=== PATIENT | female | born 1990 | race Caucasian/White ===

== ENCOUNTER 2016-08-10 11:18 | Emergency (ER) | payer MEDICAID ==
--- NOTE | 2016-08-10 11:52 | UCPHY ---
H & P Time Seen by Provider: 08/10/16 11:27 Patient Type: Established HPI/ROS: CHIEF COMPLAINT: Vaginal bleeding and cramping post plan B contraception HISTORY OF PRESENT ILLNESS: 26-year-old female in the urgent care complaining of vaginal bleeding and lower abdominal cramping since this morning. Today is Wednesday. On Wednesday morning she took Plan B emergency contraception after unprotected sexual intercourse Wednesday evening. This morning she started to experience abdominal cramping, nausea, no vomiting, no bowel movement abnormality. REVIEW OF SYSTEMS: A ten point review of systems was performed and is negative with the exception of the items mentioned in the HPI PAST MEDICAL & SURGICAL HISTORY: History of heavy menstrual period. Last normal menstrual period was 08/02/2016 SOCIAL HISTORY:nonsmoker PHYSICAL EXAM (Prior to examination, patient consented to physical exam, hands were washed and my usual and customary physical exam procedures followed) 1) GENERAL: Well-developed, well-nourished, alert and oriented. Appears to be in no acute distress. She is smiling, shakes my hand 2) HEAD: Normocephalic, atraumatic 3) HEENT: Pupils equal, round, reactive to light bilaterally. Sclera anicteric. 4) NECK: Full range of motion, no meningeal signs. 5) LUNGS: Clear auscultation bilaterally, no wheezes, no rhonchi, no retractions. 6) HEART: Regular rate and rhythm, no murmur, no heave, no gallop. 7) ABDOMEN: No guarding, no rebound, no focal tenderness, negative McBurney's, negative Sweeney's, negative Rovsing's, negative peritoneal sign, I am unable to elicit any abdominal pain on exam 8) MUSCULOSKELETAL: No peripheral edema or discoloration. 9) BACK: No CVA tenderness. 10) SKIN: No rash, no petechiae. DIFFERENTIAL DIAGNOSIS: [My differential diagnosis includes, but is not limited to, nausea vomiting abdominal pain secondary to emergency contraception , acute appendicitis, acute cholecystitis, bowel obstruction, acute pancreatitis , ovarian torsion, ectopic , gastritis and urinary tract infection. The patient understands that this diagnosis is provisional and can never be 100 % accurate. This is a partial list of diagnoses considered. These considerations are based on history, physical exam, past history and reassessment. Smoking Status: Never smoked Constitutional: Initial Vital Signs Temperature (C) 37.0 C 08/10/16 11:40 Heart Rate 77 08/10/16 11:40 Respiratory Rate 18 08/10/16 11:40 Blood Pressure 106/73 08/10/16 11:40 O2 Sat (%) 96 08/10/16 11:40 O2 Delivery Mode Room Air Allergies/Adverse Reactions: No Known Allergies Allergy (Verified 08/10/16 11:35) Home Medications: Medication Instructions Recorded LaMICtal 01/01/16 Topamax 01/01/16 MDM/Departure - [facility] ED Course/Re-evaluation: This patient has been re-evaluated with serial examinations. Her abdomen is soft, no guarding no rebound. Doubt acute surgical abdominal pathology, doubt acute appendicitis, doubt ectopic . Plan will be discharge. Offered analgesia and anti emetic which she declined. Patient feels comfortable being discharged. Usual and customary abdominal discharge precautions instructions provided. - Depart Disposition: Home, Routine, Self-Care Clinical Impression: Emergency contraception Condition: Good Instructions: Emergency Contraception (ED) Additional Instructions: Seek immediate medical attention if you develop new or worsening symptoms, if you develop fevers, chills, inability to tolerate oral intake or any other symptoms that concerns you. Referrals: [facility],. [Primary Care Provider] - 1 day without fail - PQRS PQRS Measurement: Not applicable
[2016-08-10 11:56] LABS: COLOR YELLOW; LEUKOCYTE ESTERASE,URINE NEGATIVE (NEGATIVE); NITRITE,URINE NEGATIVE (NEGATIVE); PH,URINE 8.5 (5.0-7.5)
[2016-08-10 11:57] VITALS: BP 106/73; PULSE 77; RESP 18; TEMP 98.6; O2SAT 96
[2016-08-10 12:06] LABS: AMORPHOUS 3+ /hpf (NONE-1+); MUCUS TRACE /lpf (NONE-1+); RBC,URINE 0-1 /hpf (0-3); WBC,URINE NONE SEEN /hpf (0-3)
== END 2016-08-10 12:21 | disposition home or self-care (01) ==
LOC: CED 11:18
DX: N93.9 Abnormal uterine and vaginal bleeding, unspecified (principal)
CPT/HCPCS: 81003-PO; 81015-PO; 81025-PO; 99213-PO; G0463-PO

== ENCOUNTER → 2016-09-04 | Outpatient (CLI) | payer MEDICAID ==
--- NOTE | 2016-09-04 15:40 | DX ---
PA and Lateral Chest X-ray Indication: Positive PPD. Findings: The lungs are clear. Heart size normal. No adenopathy, consolidation, or apical scarring . Impression: Normal. No evidence of old or active granulomatous disease.
== END ==
LOC: FIMAGING 15:14
DX: R76.11 Nonspecific reaction to tuberculin skin test without active tuberculosis (principal)

== ENCOUNTER 2016-11-07 20:21 | Emergency (ER) | payer MEDICAID ==
[2016-11-07 20:37] VITALS: BP 116/70; PULSE 89; RESP 12; TEMP 99; O2SAT 99
--- NOTE | 2016-11-07 21:26 | UCPHY ---
H & P Time Seen by Provider: 11/07/16 21:17 Patient Type: Established HPI/ROS: This patient complains of a URI symptoms for 3 days. She explains that she has had nasal congestion with inability to breathe through her nose because of the severity of the congestion for 3 days. She also has ear pressure bilaterally, mild sore throat as well. She has minimal improvement from [id number] medications. No other exacerbating factors. ROS: No fevers or chills. No facial pain. HEENT: No change in hearing. She still tolerating good p.o. intake despite the sore throat. Pulmonary: No cough. GI: No vomiting. 7 point ROS is otherwise negative. Past Medical/Surgical History: Psychiatric history Smoking Status: Never smoked Physical Exam: Physical Exam Vital signs are normal. General: No acute distress HEENT: Nose: Clear discharge bilaterally. No sinus tenderness to percussion. Ears: External canals and tympanic membranes are clear with no erythema or abnormal findings bilaterally. Oropharynx: Minimal erythema. No exudates. No dysphonia. No drooling or stridor. Eyes: Pupils equal and react to light. Extraocular motions are intact. Lungs: Clear to auscultation bilaterally with no rales, rhonchi or wheeze. No respiratory distress. Cardiac: Regular rate and rhythm with no murmur gallop or rub Skin: No rash or pallor. Neuro: Alert with no focal deficits noted. Initial differential diagnosis: Viral URI, strep pharyngitis Constitutional: Initial Vital Signs Temperature (C) 37.2 C 11/07/16 20:32 Heart Rate 89 11/07/16 20:32 Respiratory Rate 12 11/07/16 20:32 Blood Pressure 116/70 11/07/16 20:32 O2 Sat (%) 99 11/07/16 20:32 O2 Delivery Mode Room Air Allergies/Adverse Reactions: No Known Allergies Allergy (Verified 11/07/16 20:30) Home Medications: Medication Instructions Recorded LaMICtal 01/01/16 Topamax 01/01/16 Fluticasone Nasal [Flonase Nasal 2 sprays NASAL DAILY #1 mdi 11/07/16 [place] (RX)] Propranolol HCl 11/07/16 Medical Decision Making ED Course/Re-evaluation: Rapid strep is negative I counseled patient regarding viral URI - Data Points Laboratory Results: 11/07/16 11/07/16 Unknown 20:35 Group A Strep Screen NEGATIVE (NEGATIVE) Group A Strep DNA Pending Departure - Departure Disposition: Home, Routine, Self-Care Clinical Impression: Viral upper respiratory infection Condition: Good Instructions: Upper Respiratory Infection (ED) Additional Instructions: Diagnosis: Viral upper respiratory infection Plan: Humidifier Guaifenesin [id number] Ibuprofen-600 mg per 6 hours for swelling and sinus pain Tylenol in addition if needed Flonase steroid nasal spray for 10 days. Return for any significant worsening despite treatment plan Referrals: [facility],. [Primary Care Provider] - As per Instructions Prescriptions: Fluticasone Nasal [Flonase Nasal [place] (RX)] 2 sprays NASAL DAILY #1 mdi - PQRS PQRS Measurement: NA
== END 2016-11-07 21:55 | disposition home or self-care (01) ==
LOC: CED 20:21
DX: J06.9 Acute upper respiratory infection, unspecified (principal)
CPT/HCPCS: 87880-PO; 99214-PO; G0463-PO

== ENCOUNTER 2017-07-23 15:38 | Emergency (ER) | payer MEDICAID ==
--- NOTE | 2017-07-23 16:42 | EDPHY ---
H & P Stated Complaint: LEFT SIDED ABDOMINAL PAIN RADIATING TO FLANK Time Seen by Provider: 07/23/17 16:41 HPI/ROS: HPI CHIEF COMPLAINT: LUQ abdominal pain HISTORY OF PRESENT ILLNESS: This patient very pleasant 27-year-old female she is otherwise healthy no significant medical history except for mood disorder, she presents emergency room with left upper quadrant abdominal pain additionally she has some left CVA tenderness, No fever. No vomiting. Denies chest pain or shortness of breath. Denies right or left lower quadrant abdominal pain. No fever chills. Patient denies pelvic pain or dysuria. Denies urinary symptoms or vaginal discharge. Past Medical History: Mood disorder Past Surgical History: No surgical history Social History: Lives locally denies drugs alcohol tobacco products. Family History: Noncontributory ROS REVIEW OF SYSTEMS: A comprehensive 10 point review of systems is otherwise negative aside from elements mentioned in the history of present illness. Exam Constitutional appears well nontoxic, triage nursing summary reviewed, vital signs reviewed, awake/alert. Eyes normal conjunctivae and sclera, EOMI, PERRLA. HENT normal inspection, atraumatic, moist mucus membranes, no epistaxis, neck supple/ no meningismus, no raccoon eyes. Respiratory clear to auscultation bilaterally, normal breath sounds, no respiratory distress, no wheezing. Cardiovascular rate normal, regular rhythm, no murmur, no edema, distal pulses normal. Gastrointestinal very mild tender palpation left upper quadrant, no lower abdominal pain,, soft, non-tender, no rebound, no guarding, normal bowel sounds , no distension, no pulsatile mass. Genitourinary very mild left CVA tenderness Musculoskeletal no midline vertebral tenderness, full range of motion, no calf swelling, no tenderness of extremities, no meningismus, good pulses, neurovascularly intact. Skin pink, warm, & dry, no rash, skin atraumatic. Neurologic awake, alert and oriented x 3, AAOx3, moves all 4 extremities equally, motor intact, sensory intact, CN II-XII intact, normal cerebellar, normal vision, normal speech. Psychiatric normal mood/affect. Heme/Lymph/Immune no lymphadenopathy. Differential diagnosis includes but is not limited to and in no particular order : Bowel obstruction, appendicitis, gallbladder disease, diverticulitis, colitis , enteritis, perforated viscus, gastritis, GERD, esophagitis, urinary tract infection, pyelonephritis, kidney stones Medical Decision Making: Plan for this patient basic blood work, check urinalysis, test, gentle IV hydration, she declined pain medicine here at this time. And re-evaluate. Re-evaluation: 1743: Re-evaluation at this time this patient is resting comfortably or abdomen remained soft. Initially when she got here illicit left upper quadrant abdominal pain she had no lower abdominal pain he continues to have no lower abdominal pain. She denies any vaginal discharge or dysuria. Her blood work has been reviewed as well as her urinalysis I do not appreciate any abnormality. Additionally do the left CVA pain and left-sided upper quadrant pain she had a CT scan abdomen pelvis without contrast this shows significant amount of constipation on the left side. Otherwise no acute inflammatory process. Otherwise no hydroureter evidence of stone. Most likely cause of pain is constipation. She does feel comfortable going home. I will place her on stool softeners and MiraLax. Again she has no lower abdominal pain. She additionally understands return to the emergency room she develops worsening abdominal pain fever or vomiting. Patient reports that she did have a bowel movement 2 days ago was rather small. She distally reports to me she has been taking Vicodin recently. States she had some laser procedure done under face was taking pain medicine for this. Source: Patient - Personal History LMP (Females 10-55): 15-21 Days Ago Current Tetanus/Diphtheria Vaccine: Yes Current Tetanus Diphtheria and Acellular Pertussis (TDAP): Yes Tetanus Vaccine Date: 2015 - Medical/Surgical History Hx Asthma: No Hx Chronic Respiratory Disease: No Hx Diabetes: No Hx Cardiac Disease: No Hx Renal Disease: No Hx Cirrhosis: No Hx Alcoholism: No Hx HIV/AIDS: No Hx Splenectomy or Spleen Trauma: No Other PMH: PMHx: bipolar, anxiety, panic attacks. PSHx: denies - Social History Smoking Status: Never smoked Constitutional: Initial Vital Signs Temperature (C) 36.8 C 07/23/17 15:55 Heart Rate 81 07/23/17 15:55 Respiratory Rate 18 07/23/17 15:55 Blood Pressure 119/81 H 07/23/17 15:55 O2 Sat (%) 100 07/23/17 15:55 O2 Delivery Mode Room Air Allergies/Adverse Reactions: No Known Allergies Allergy (Verified 11/07/16 20:30) Home Medications: Medication Instructions Recorded LaMICtal 01/01/16 Topamax 01/01/16 Fluticasone Nasal [Flonase Nasal 2 sprays NASAL DAILY #1 mdi 11/07/16 [place] (RX)] Propranolol HCl 11/07/16 Polyethylene Glycol 3350 [Miralax 17 gm PO DAILY #4 pkt 07/23/17 17 gm (*)] Medical Decision Making - Diagnostics Imaging Results: Imaging Impressions Abdomen/Pelvis CT 07/23/17 17:10 Impression: 1. No evidence for nephro or ureterolithiasis. 2. No source for left flank pain identified, other than constipation. 3. Possible bilateral ovarian cystic disease vs endometriosis vs potentially ovarian torsion. If clinically indicated pelvic sonography might be useful, particularly if it is important to exclude ovarian torsion. Results called and discussed with Jordan Cadet MD, at 07/23/2017 17:35 Attention: This CT examination is specifically designed to evaluate patients who are clinically suspected of having acute obstructive uropathy. This examination does not use radiographic contrast, and as such, provides only a limited evaluation of the abdomen, pelvis and retroperitoneum. If there is further clinical suspicion for pathological conditions other than obstructive uropathy, a complete CT evaluation of the abdomen and pelvis utilizing intravenous, oral, and rectal contrast should be considered. General information for patients regarding this examination can be found at [email or web address]. If you have questions or comments about this report, please contact me at (hospital) or [phone] (cell). - Data Points Laboratory Results: Laboratory Results 07/23/17 16:47 07/23/17 16:47 07/23/17 07/23/17 07/23/17 16:47 16:47 16:47 WBC RBC Hgb Hct MCV MCH MCHC RDW Plt Count MPV Neut % (Auto) Lymph % (Auto) [place] % (Auto) Eos % (Auto) Baso % (Auto) Nucleat RBC Rel Count Absolute Neuts (auto) Absolute Lymphs (auto) Absolute Monos (auto) Absolute Eos (auto) Absolute Basos (auto) Absolute Nucleated RBC Immature Gran % Immature Gran # Sodium 146 mEq/L H mEq/L (134-144) Potassium 4.1 mEq/L mEq/L (3.5-5.2) Chloride 112 mEq/L H mEq/L (97-110) Carbon Dioxide 19 mEq/l L mEq/l (22-31) Anion Gap 15 mEq/L mEq/L (8-16) BUN 8 mg/dL mg/dL (7-23) Creatinine 0.8 mg/dL mg/dL (0.6-1.0) Estimated GFR > 60 Glucose 86 mg/dL mg/dL (70-100) Calcium 9.9 mg/dL mg/dL (8.5-10.4) Beta HCG, Qual NEGATIVE Urine Color YELLOW Urine Appearance MODERATELY TURBID Urine pH 6.0 (5.0-7.5) Ur Specific [place] 1.020 (1.002-1.030) Urine Protein NEGATIVE (NEGATIVE) Urine Ketones NEGATIVE (NEGATIVE) Urine Blood NEGATIVE (NEGATIVE) Urine Nitrate NEGATIVE (NEGATIVE) Urine Bilirubin NEGATIVE (NEGATIVE) Urine Urobilinogen NEGATIVE EU EU (0.2-1.0) Ur Leukocyte Esterase NEGATIVE (NEGATIVE) Urine Glucose NEGATIVE (NEGATIVE) 07/23/17 16:47 WBC 7.57 10^3/uL 10^3/uL (3.80-9.50) RBC 4.74 10^6/uL 10^6/uL (4.18-5.33) Hgb 15.3 g/dL g/dL (12.6-16.3) Hct 43.7 % % (38.0-47.0) MCV 92.2 fL fL (81.5-99.8) MCH 32.3 pg pg (27.9-34.1) MCHC 35.0 g/dL g/dL (32.4-36.7) RDW 13.2 % % (11.5-15.2) Plt Count 276 10^3/uL 10^3/uL (150-400) MPV 9.2 fL fL (8.7-11.7) Neut % (Auto) 66.3 % % (39.3-74.2) Lymph % (Auto) 25.8 % % (15.0-45.0) [place] % (Auto) 5.9 % % (4.5-13.0) Eos % (Auto) 0.8 % % (0.6-7.6) Baso % (Auto) 0.9 % % (0.3-1.7) Nucleat RBC Rel Count 0.0 % % (0.0-0.2) Absolute Neuts (auto) 5.02 10^3/uL 10^3/uL (1.70-6.50) Absolute Lymphs (auto) 1.95 10^3/uL 10^3/uL (1.00-3.00) Absolute Monos (auto) 0.45 10^3/uL 10^3/uL (0.30-0.80) Absolute Eos (auto) 0.06 10^3/uL 10^3/uL (0.03-0.40) Absolute Basos (auto) 0.07 10^3/uL 10^3/uL (0.02-0.10) Absolute Nucleated RBC 0.00 10^3/uL 10^3/uL (0-0.01) Immature Gran % 0.3 % % (0.0-1.1) Immature Gran # 0.02 10^3/uL 10^3/uL (0.00-0.10) Sodium Potassium Chloride Carbon Dioxide Anion Gap BUN Creatinine Estimated GFR Glucose Calcium Beta HCG, Qual Urine Color Urine Appearance Urine pH Ur Specific [place] Urine Protein Urine Ketones Urine Blood Urine Nitrate Urine Bilirubin Urine Urobilinogen Ur Leukocyte Esterase Urine Glucose Medications Given: Discontinued Medications Sodium Chloride (Ns) 1,000 mls @ 0 mls/hr IV ONCE ONE PRN Reason: Wide Open Stop: 07/23/17 16:53 Last Admin: 07/23/17 17:36 Dose: 1,000 mls Departure - Departure Disposition: Home, Routine, Self-Care Clinical Impression: Abdominal pain Qualifiers: Abdominal location: unspecified location Qualified Code(s): R10.9 - Unspecified abdominal pain Constipation Qualifiers: Constipation type: unspecified constipation type Qualified Code(s): K59.00 - Constipation, unspecified Condition: Good Instructions: Constipation (ED), Acute Abdominal Pain (ED) Additional Instructions: 1. Return emergency room if he develops worsening abdominal pain fever vomiting. 2. Stay well-hydrated drink lots of fluids. 3. MiraLax as prescribed. Prescriptions: Polyethylene Glycol 3350 [Miralax 17 gm (*)] 17 gm PO DAILY #4 pkt
[2017-07-23] MEDS ORDERED: NS 1,000 ML IV ONE (16:52)
[2017-07-23 17:03] LABS: PLATELET COUNT 276 10^3/uL (150-400)
[2017-07-23 17:43] VITALS: RESP 16
[2017-07-23 19:39] VITALS: BP 121/81; PULSE 61; TEMP 98.1; O2SAT 98
== END 2017-07-23 19:38 | disposition home or self-care (01) ==
DX: K59.00 Constipation, unspecified (principal)

== ENCOUNTER 2017-08-02 16:23 | Emergency (ER) | payer MEDICAID ==
--- NOTE | 2017-08-02 16:27 | EDPHY ---
H & P HPI/ROS: HPI CHIEF COMPLAINT: Constipation HISTORY OF PRESENT ILLNESS: Patient very pleasant 27-year-old female she presents emergency room stating that she has not had a normal bowel movement 2 weeks. She was recently seen in the emergency room by myself for abdominal pain. She has been taking MiraLax additionally she took a suppository with little stool output. She is concerned she may be severely constipated or even impacted. She denies any vomiting or fever. She has diffuse crampy abdominal pain. Denies chest pain or shortness of breath. Denies being . Past Medical History: Mood disorder, bipolar disorder, anxiety Past Surgical History: No significant surgical history Social History: Denies daily use of drugs alcohol tobacco products. Denies being . Family History: Noncontributory ROS REVIEW OF SYSTEMS: A comprehensive 10 point review of systems is otherwise negative aside from elements mentioned in the history of present illness. Exam Constitutional appears well nontoxic, triage nursing summary reviewed, vital signs reviewed, awake/alert. Eyes normal conjunctivae and sclera, EOMI, PERRLA. HENT normal inspection, atraumatic, moist mucus membranes, no epistaxis, neck supple/ no meningismus, no raccoon eyes. Respiratory clear to auscultation bilaterally, normal breath sounds, no respiratory distress, no wheezing. Cardiovascular rate normal, regular rhythm, no murmur, no edema, distal pulses normal. Gastrointestinal soft, tender palpation diffusely, no peritoneal signs but moderate tenderness, no rebound, no guarding, normal bowel sounds, no distension , no pulsatile mass. Genitourinary no CVA tenderness. Musculoskeletal no midline vertebral tenderness, full range of motion, no calf swelling, no tenderness of extremities, no meningismus, good pulses, neurovascularly intact. Skin pink, warm, & dry, no rash, skin atraumatic. Neurologic awake, alert and oriented x 3, AAOx3, moves all 4 extremities equally, motor intact, sensory intact, CN II-XII intact, normal cerebellar, normal vision, normal speech. Psychiatric normal mood/affect. Heme/Lymph/Immune no lymphadenopathy. Differential diagnosis includes but is not limited to and in no particular order : Severe constipation, fecal impaction, ileus, bowel obstruction Bowel obstruction, appendicitis, gallbladder disease, diverticulitis, colitis, enteritis, perforated viscus, gastritis, GERD, esophagitis, urinary tract infection, pyelonephritis, kidney stones Medical Decision Making: Plan for this patient IV establishment with blood draw , gentle IV hydration, KUB. May need to proceed with CT scan. Re-evaluation: KUB shows [id number] constipation. Otherwise no abnormal bowel gas pattern. 174: I did reexamine the patient. She has ongoing abdominal pain. Moderate in nature. KUB is unrevealing. Will perform CT scan abdomen pelvis with IV contrast to rule out acute appendicitis or acute inflammatory process versus fecal impaction. 1750: Patient has declined any further imaging of her abdomen. Specifically she declined CT scan abdomen pelvis. I explained given her constipation symptoms abdominal pain I do recommend she gets imaging CT scan to rule out acute intra laboratory pathology in her abdomen. However she declined this. She would like to try another couple enemas and stool softeners in go home and use the bathroom. She states that her abdominal pain gets worse or she is unable to the use the bathroom or has vomiting or fever she would return for further imaging. Return precautions discussed strictly with her. Will give her prescription for MiraLax, Dulcolax, soapsuds enema, Mag citrate. She understands to increase her fluid intake. Fruits and vegetables. Return if worsening symptoms includes worsening abdominal pain fever vomiting. Source: Patient - Personal History Tetanus Vaccine Date: 2015 - Medical/Surgical History Hx Asthma: No Hx Chronic Respiratory Disease: No Hx Diabetes: No Hx Cardiac Disease: No Hx Renal Disease: No Hx Cirrhosis: No Hx Alcoholism: No Hx HIV/AIDS: No Hx Splenectomy or Spleen Trauma: No Other PMH: PMHx: bipolar, anxiety, panic attacks. PSHx: denies - Social History Smoking Status: Never smoked Constitutional: Initial Vital Signs Temperature (C) 36.7 C 08/02/17 16:55 Heart Rate 78 08/02/17 16:55 Respiratory Rate 20 08/02/17 16:55 Blood Pressure 130/78 H 08/02/17 16:55 O2 Sat (%) 98 08/02/17 16:55 O2 Delivery Mode Room Air Allergies/Adverse Reactions: No Known Allergies Allergy (Verified 08/02/17 16:36) Home Medications: Medication Instructions Recorded LaMICtal 01/01/16 Topamax 01/01/16 Fluticasone Nasal [Flonase Nasal 2 sprays NASAL DAILY #1 mdi 11/07/16 [place] (RX)] Propranolol HCl 11/07/16 Polyethylene Glycol 3350 [Miralax 17 gm PO DAILY #4 pkt 07/23/17 17 gm (*)] Bisacodyl [Dulcolax] 5 mg PO DAILY #10 tablet. 08/02/17 Magnesium Citrate [Citrate of 300 ml PO DAILY #1 solution 08/02/17 Magnesia] Sod Phos,M-B/Na Phos,Di-Ba [Enema] 133 ml RC BID #4 enema 08/02/17 Medical Decision Making - Diagnostics Imaging Results: Imaging Impressions Abdomen X-Ray 08/02/17 16:34 Impression: Mild to moderate constipation, with otherwise nonspecific bowel gas pattern. - Data Points Laboratory Results: Laboratory Results 08/02/17 17:05 08/02/17 17:05 08/02/17 08/02/17 08/02/17 17:40 17:05 17:05 WBC RBC Hgb Hct MCV MCH MCHC RDW Plt Count MPV Neut % (Auto) Lymph % (Auto) [place] % (Auto) Eos % (Auto) Baso % (Auto) Nucleat RBC Rel Count Absolute Neuts (auto) Absolute Lymphs (auto) Absolute Monos (auto) Absolute Eos (auto) Absolute Basos (auto) Absolute Nucleated RBC Immature Gran % Immature Gran # Sodium 142 mEq/L mEq/L (134-144) Potassium 3.9 mEq/L mEq/L (3.5-5.2) Chloride 105 mEq/L mEq/L (97-110) Carbon Dioxide 20 mEq/l L mEq/l (22-31) Anion Gap 17 mEq/L H mEq/L (8-16) BUN 9 mg/dL mg/dL (7-23) Creatinine 0.6 mg/dL mg/dL (0.6-1.0) Estimated GFR > 60 Glucose 81 mg/dL mg/dL (70-100) Calcium 9.4 mg/dL mg/dL (8.5-10.4) Total Bilirubin 0.3 mg/dL mg/dL (0.1-1.4) Conjugated Bilirubin 0.2 mg/dL mg/dL (0.0-0.5) Unconjugated Bilirubin 0.1 mg/dL mg/dL (0.0-1.1) AST 24 IU/L IU/L (14-46) ALT 28 IU/L IU/L (9-52) Alkaline Phosphatase 65 IU/L IU/L (38-126) Total Protein 7.5 g/dL g/dL (6.3-8.2) Albumin 4.3 g/dL g/dL (3.5-5.0) Lipase 167 IU/L IU/L (23-300) Beta HCG, Qual NEGATIVE Urine Color Pending Urine Appearance Pending Urine pH Pending Ur Specific Tiro Pending Urine Protein Pending Urine Ketones Pending Urine Blood Pending Urine Nitrate Pending Urine Bilirubin Pending Urine Urobilinogen Pending Ur Leukocyte Esterase Pending Urine Glucose Pending 08/02/17 17:05 WBC 7.28 10^3/uL 10^3/uL (3.80-9.50) RBC 4.64 10^6/uL 10^6/uL (4.18-5.33) Hgb 14.4 g/dL g/dL (12.6-16.3) Hct 42.1 % % (38.0-47.0) MCV 90.7 fL fL (81.5-99.8) MCH 31.0 pg pg (27.9-34.1) MCHC 34.2 g/dL g/dL (32.4-36.7) RDW 12.8 % % (11.5-15.2) Plt Count 227 10^3/uL 10^3/uL (150-400) MPV 9.4 fL fL (8.7-11.7) Neut % (Auto) 72.7 % % (39.3-74.2) Lymph % (Auto) 18.1 % % (15.0-45.0) [place] % (Auto) 7.6 % % (4.5-13.0) Eos % (Auto) 0.8 % % (0.6-7.6) Baso % (Auto) 0.5 % % (0.3-1.7) Nucleat RBC Rel Count 0.0 % % (0.0-0.2) Absolute Neuts (auto) 5.29 10^3/uL 10^3/uL (1.70-6.50) Absolute Lymphs (auto) 1.32 10^3/uL 10^3/uL (1.00-3.00) Absolute Monos (auto) 0.55 10^3/uL 10^3/uL (0.30-0.80) Absolute Eos (auto) 0.06 10^3/uL 10^3/uL (0.03-0.40) Absolute Basos (auto) 0.04 10^3/uL 10^3/uL (0.02-0.10) Absolute Nucleated RBC 0.00 10^3/uL 10^3/uL (0-0.01) Immature Gran % 0.3 % % (0.0-1.1) Immature Gran # 0.02 10^3/uL 10^3/uL (0.00-0.10) Sodium Potassium Chloride Carbon Dioxide Anion Gap BUN Creatinine Estimated GFR Glucose Calcium Total Bilirubin Conjugated Bilirubin Unconjugated Bilirubin AST ALT Alkaline Phosphatase Total Protein Albumin Lipase Beta HCG, Qual Urine Color Urine Appearance Urine pH Ur Specific Tiro Urine Protein Urine Ketones Urine Blood Urine Nitrate Urine Bilirubin Urine Urobilinogen Ur Leukocyte Esterase Urine Glucose Medications Given: Discontinued Medications Sodium Chloride (Ns) 1,000 mls @ 0 mls/hr IV EDNOW ONE; Wide Open PRN Reason: Protocol Stop: 08/02/17 16:36 Last Admin: 08/02/17 17:05 Dose: 1,000 mls Departure - Departure Disposition: Home, Routine, Self-Care Clinical Impression: Constipation Qualifiers: Constipation type: unspecified constipation type Qualified Code(s): K59.00 - Constipation, unspecified Condition: Good Instructions: Constipation (ED), Acute Abdominal Pain (ED) Additional Instructions: 1. Return to the emergency room if you have worsening abdominal pain fever or vomiting. 2. Prescriptions as prescribed. 3. Return if worse. Referrals: NONE *PRIMARY CARE P,. [Primary Care Provider] - As per Instructions Prescriptions: Bisacodyl [Dulcolax] 5 mg PO DAILY #10 tablet. Magnesium Citrate [Citrate of Magnesia] 300 ml PO DAILY #1 solution Sod Phos,M-B/Na Phos,Di-Ba [Enema] 133 ml RC BID #4 enema
[2017-08-02] MEDS ORDERED: NS 1,000 ML IV ONE (16:35)
[2017-08-02 16:57] VITALS: RESP 20; TEMP 98.1
[2017-08-02 17:12] LABS: PLATELET COUNT 227 10^3/uL (150-400)
[2017-08-02] MEDS ORDERED: IOPAMIDOL (ISOVUE-300) 100 ML BTL ONE (17:26)
[2017-08-02 17:54] VITALS: BP 107/69; PULSE 62; O2SAT 96
== END 2017-08-02 17:56 | disposition home or self-care (01) ==
LOC: CED 16:23
DX: K59.00 Constipation, unspecified (principal); E86.9 Volume depletion, unspecified
CPT/HCPCS: 74018-PO; 80048-PO; 80076-PO; 81003-PO; 81015-PO; 83690-PO; 84703-PO; 85025-PO; Q9967

== ENCOUNTER 2018-11-25 07:26 | Emergency (ER) | payer MEDICAID ==
[2018-11-25] MEDS ORDERED: hydrOXYzine HCL 25 MG TAB PO ONE (09:43)
== END 2018-11-25 09:50 | disposition home or self-care (01) ==
DX: R21 Rash and other nonspecific skin eruption (principal); F31.9 Bipolar disorder, unspecified; F41.9 Anxiety disorder, unspecified